=== PATIENT | male | born 1985 | race Caucasian/White ===

== ENCOUNTER 2017-07-21 18:14 | Emergency (ER) | payer MEDICAID ==
--- NOTE | 2017-07-21 18:31 | ED Physician Chart ---
ED Chief Complaint/HPI - Patient Information Date Seen:: 07/21/17 Time Seen:: 18:20 Chief Complaint:: Laceration R forearm. History of Present Illness:: Pt sustained R forearm laceration at about 5:30 pm today. It occurred when he came in contact with a sharp edge of a wire while he was trimming a tree. No other injury or bodily pain. Last tetanus immunization is unknown. Allergies:: Allergies Allergy/AdvReac Type Severity Reaction Status Date / Time No Known Allergies Allergy Verified 07/21/17 18:21 Vitals:: See Nurse Note. Historian:: Patient Family MD/PCP:: Unknown LMP:: N/A Review:: Nurse's Note Reviewed ED Review of Systems - Review of Systems General/Constitutional: No fever, No chills, No weight loss, No weakness, No diaphoresis, No edema, No loss of appetite Skin: No rash, No bruising, Other (R forearm laceration, see HPI.) Head: No headache, No light-headedness Eyes: No loss of vision, No pain, No diplopia ENT: No earache, No nasal drainage, No sore throat, No tinnitus Neck: No neck pain, No swelling, No thyromegaly, No stiffness, No mass noted Cardio Vascular: No chest pain, No palpitations, No edema Pulmonary: No SOB, No cough, No wheezing GI: No nausea, No vomiting, No diarrhea, No pain G/U: No dysuria, No frequency, No hematuria Musculoskeletal: No bone or joint pain, No back pain, No muscle pain Endocrine: No polyuria, No polydipsia Psychiatric: No prior psych history Hematopoietic: No bruising, No lymphadenopathy Neurological: No syncope, No focal symptoms, No weakness, No paresthesia, No headache, No dizziness, No confusion ED Past Medical History - Past Medical History Past Medical History: HTN, DM Family History: Diabetes Melitus (parents), HTN (mother) Social History: Smoker (8 cigarets daily. Pt has been informed about mario risks associated with chronic tobacco use and has been advised to quit. Pt has been encouraged to enroll in a smoking cessation program. Pt acknowledges understanding.), No Alcohol, No Drug Use, , Other (lives with his .) Employment:: Room service in a hotel. Surgical History: None Psychiatricy History: None Medication: Reviewed Family Medical History - Family Member Father Ethnicity: Living Status: Still Living Hx Family Hypertension: Yes Hx Family Diabetes: Yes ED Physical Exam - Physical Examination General/Constitutional: Awake, Well-developed, well-nourished, Alert, No distress, GCS 15, Non-toxic appearing, Ambulatory Other Gen/Cons comments:: Breathes comfortably, speaks clearly, interacts normally, and ambulates without difficulty. Head: Atraumatic Eyes: Lids, conjuctiva normal, PERRL, EOMI Skin: No ecchymosis, Well hydrated, No lymphadenopathy Other Skin comments:: see also Extremities exam. ENMT: External ears, nose nl, Nasal exam nl, Lips, teeth, gums nl, Oropharynx nl Neck: Nontender, Full ROM w/o pain, No nuchal rigidity, No mass, No stridor Respiratory: Nl effort/Exclusion, Clear to Auscultation, No Wheeze/Rhonchi/Rales Cardio Vascular: RRR (HR 92), No murmur, gallop, rubs GI: No tenderness/rebounding/guarding, No organomegaly, Normal BS's, Nondistended Other GI comments:: Abdomen is soft. Other Extremities comments:: RUE: FROM of all joints. There is an approx. 2.5 cm superficial longitudinal laceration at proximal third of dorsum of forearm. No active bleeding, swelling , erythema, exudate, or unusual warmth. No detectable motor/sensory/vascular deficit. Good distal pulse. Neuro/Psych: Alert/oriented (oriented x 3.), Mood normal, Normal gait, No focal deficits ED Septic Shock - . Is Septic Shock (SBP<90, OR Lactate>4 mmol\L) present?: No ED Reassessment (Disposition) - Reassessment Reassessment:: 1842 Laceration repair. Discussed with pt at length. Pt decided to have laceration repair with Dermabond. Wound was prepped in usual sterile manner. Wound was cleansed with betadine. It was then well irrigated with sterile normal saline. Wound was explored. No foreign body was found. Wound was well approximated with Dermabond. Pt tolerated the procedure well without immediate complication. 1849 Accuchek was offered, but pt declined and preferred to have it checked at home. Pt requests to go home now. Aftercare instructions have been given. Reassessment Condition:: Improved - Diagnosis Diagnosis:: Superficial laceration at R forearm, s/p laceration repair with Dermabond. Stable and improved. - Aftercare/Follow up Instructions Aftercare/Follow-Up Instructions:: Refer to Discharge Instructions Notes:: Keep wound clean and dry. Wound care instructions given. May take Tylenol 500 mg tab one tab po q6h prn pain. F/U with Dr. Wolfe or PCP of pt's choice in one day for recheck. Return to ER immediately if condition worsens or if any further questions/problems. Medication Prescribed:: Bactrim DS one tab po q12h for 10 days. D-20 R-0 - Patient Disposition Discharge/Transfer:: Home Time:: 18:55 Condition at Disposition:: Stable, Improved
== END 2017-07-21 19:18 | disposition home or self-care (01) ==
LOC: ER 18:14
DX: S51.811A Laceration without foreign body of right forearm, initial encounter (principal); E11.9 Type 2 diabetes mellitus without complications; I10 Essential (primary) hypertension; F17.210 Nicotine dependence, cigarettes, uncomplicated; W26.9XXA Contact with unspecified sharp object(s), initial encounter; Y93.H2 Activity, gardening and landscaping; Y92.89 Other specified places as the place of occurrence of the external cause; Y99.8 Other external cause status
CPT/HCPCS: 12001; A4217; Z7502